=== PATIENT | female | born 1980 | race Caucasian/White ===

== ENCOUNTER 2020-11-06 10:22 | Emergency (ER) | payer OTHER, MEDICAID ==
[~2020-11-06] VITALS: Ht 157.5 cm; Wt 91.0 kg
[2020-11-06 14:59] LABS: BASOPHILS % 0.6 % (0.0-2.0); EOSINOPHILS % 3.4 % (0.0-5.0); HEMATOCRIT. 42.4 % (36.0-48.0); HEMOGLOBIN. 14.5 g/dL (12.0-16.0); LYMPHOCYTES % 24.6 % (20.0-50.0); MEAN CORPUSCULAR HEMOGLOBIN 28.9 pg (28.0-32.0); MEAN CORPUSCULAR VOLUME 84.4 fL (81.0-99.0); MEAN PLATELET VOLUME 11.5 fl (7.4-10.4); MONOCYTES % 7.7 % (2.0-8.0); NEUTROPHILS % 63.7 % (40.0-76.0); PLATELET 203 x1000/uL (130-400); RED BLOOD CELL COUNT 5.03 mill/uL (4.2-5.4); RED CELL DISTRIBUTION WIDTH 13.4 % (11.6-14.6)
[2020-11-06 15:07] LABS: CHLORIDE 110 mEq/L (98-107)
[2020-11-06 15:17] LABS: B-HCG QUANTITATIVE < 1 mIU/mL (<3)
[2020-11-06 15:21] LABS: CLARITY URINE CLEAR (CLEAR); COLOR URINE YELLOW (YELLOW); KETONES URINE NEGATIVE (NEGATIVE); LEUKOCYTE ESTERASE URINE NEGATIVE (NEGATIVE); NITRITE URINE NEGATIVE (NEGATIVE); OCCULT BLOOD URINE 1+ (NEGATIVE); PH URINE 5.5 (4.5-8.0); PROTEIN URINE NEGATIVE (NEGATIVE); SPECIFIC GRAVITY URINE 1.026 (1.005-1.030)
[2020-11-06 15:44] LABS: *AMPHETAMINES SCREEN URINE NEGATIVE (NEGATIVE); *BARBITURATES SCREEN URINE NEGATIVE (NEGATIVE); *BENZODIAZEPINES SCREEN URINE NEGATIVE (NEGATIVE); *COCAINE SCREEN URINE NEGATIVE (NEGATIVE); METHADONE URINE SCREEN NEGATIVE (NEGATIVE); OPIATES URINE SCREEN NEGATIVE (NEGATIVE)
[2020-11-06 15:45] LABS: CANNABINOID URINE SCREEN NEGATIVE (NEGATIVE); PHENCYCLIDINE URINE SCREEN NEGATIVE (NEGATIVE)
[2020-11-06] MEDS ORDERED: IBUPROFEN 600MG TABLET PO ONE (16:00)
[2020-11-06 16:01] VITALS: BP 133/72
== END 2020-11-06 16:22 | disposition home or self-care (01) ==
LOC: ER 10:22
DX: N39.0 Urinary tract infection, site not specified (principal); R19.09 Other intra-abdominal and pelvic swelling, mass and lump
CPT/HCPCS: 36415; 76830; 76856; 80053; 80305; 81003; 84702; 85025; 93005; 99285

== ENCOUNTER 2021-07-01 17:11 | Emergency (ER) | payer MEDICAID, OTHER ==
[~2021-07-01] VITALS: Ht 162.6 cm; Wt 95.0 kg
[2021-07-01] MEDS ORDERED: ACETAMINOPHEN 325MG TABLET PO ONE (20:30)
[2021-07-01] MEDS ORDERED: BACITRACIN ZINC OINT UDPKT TOP ONE (20:30)
[2021-07-01] MEDS ORDERED: LIDOCAINE HCL/PF 1% 10 MG/ML 5ML VIAL INFIL ONE (20:30)
[2021-07-01] MEDS ORDERED: TETANUS, DIPHTHERIA, PERTUSSIS VAC/PF 0.5ML (>7YR OLD) IM ONE (20:30)
[2021-07-01 21:00] VITALS: BP 148/83
[2021-07-01] MEDS ORDERED: SULFAMETHOXAZOLE/TRIMETHOPRIM 800/160MG TABLET PO ONE (21:45)
[2021-07-01] MEDS ORDERED: SULF1TAB48 MT (21:47)
== END 2021-07-01 23:20 | disposition home or self-care (01) ==
LOC: ER 17:11
DX: L02.511 Cutaneous abscess of right hand (principal)
CPT/HCPCS: 10060; 81025; 99283; J3490; Z7610

== ENCOUNTER 2021-07-03 16:29 | Emergency (ER) | payer MEDICAID ==
[~2021-07-03] VITALS: Ht 162.6 cm; Wt 96.0 kg
[~2021-07-03 16:29] MED LIST: SULF1TAB48 MT
[2021-07-03 16:54] VITALS: BP 105/64
== END 2021-07-03 17:00 | disposition home or self-care (01) ==
LOC: ER 16:29
DX: S61.214D Laceration without foreign body of right ring finger without damage to nail, subsequent encounter (principal); X58.XXXD Exposure to other specified factors, subsequent encounter
CPT/HCPCS: 99281

== ENCOUNTER 2022-02-01 09:29 | Emergency (ER) | payer MEDICAID, OTHER ==
[~2022-02-01] VITALS: Ht 157.5 cm; Wt 95.0 kg
[2022-02-01 11:30] VITALS: BP 174/80
[2022-02-01] MEDS ORDERED: KETOROLAC 30MG/ML VIAL IM ONE (11:30)
[2022-02-01] MEDS ORDERED: ACETAMINOPHEN 325MG TABLET PO ONE (11:30)
== END 2022-02-01 12:38 | disposition home or self-care (01) ==
LOC: ER 09:29
DX: S09.11XA Strain of muscle and tendon of head, initial encounter (principal); V43.52XA Car driver injured in collision with other type car in traffic accident, initial encounter; Y93.89 Activity, other specified; Y92.410 Unspecified street and highway as the place of occurrence of the external cause
CPT/HCPCS: 70450; 71045; 72070; 72100; 73630; 96372; 99284; J1885

== ENCOUNTER 2023-10-10 16:15 | Emergency (ER) | payer OTHER ==
[~2023-10-10] VITALS: Ht 167.6 cm; Wt 91.0 kg
[2023-10-10 16:23] VITALS: BP 153/87; PULSE 105; RESP 18; TEMP 98.6; O2SAT 99
[2023-10-10] MEDS ORDERED: IBUPROFEN 600MG TABLET PO ONE (17:00)
[2023-10-10] MEDS ORDERED: METH-653 MT (18:54)
== END 2023-10-10 19:29 | disposition home or self-care (01) ==
LOC: ER 16:15
DX: M25.512 Pain in left shoulder (principal); M54.2 Cervicalgia; M54.9 Dorsalgia, unspecified
CPT/HCPCS: 73030; 81025; 99283

== ENCOUNTER 2024-03-23 21:28 | Emergency (ER) | payer OTHER ==
[~2024-03-23] VITALS: Ht 157.5 cm; Wt 101.0 kg
[~2024-03-23 21:28] MED LIST changes: +METH-653 MT
[2024-03-23 21:37] VITALS: O2SAT 99
[2024-03-24] MEDS ORDERED: BENZ1LOZ73 MT (00:32)
[2024-03-24] MEDS ORDERED: IBUP-2029 MT (00:32)
[2024-03-24] MEDS: DEXAMETHASONE 10 MG/ML VIAL PO ONE (00:57)
[2024-03-24 01:01] VITALS: BP 157/97; PULSE 78; RESP 14; TEMP 98
== END 2024-03-24 01:01 | disposition home or self-care (01) ==
LOC: ER 21:28
DX: J02.9 Acute pharyngitis, unspecified (principal)
CPT/HCPCS: 99283; J1100; Z7610

== ENCOUNTER 2024-03-26 09:02 | Emergency (ER) | payer MEDICAID, OTHER ==
[~2024-03-26] VITALS: Ht 157.5 cm; Wt 99.8 kg
[~2024-03-26 09:02] MED LIST changes: +BENZ1LOZ73 MT; +IBUP-2029 MT
[2024-03-26 09:06] VITALS: O2SAT 99
[2024-03-26 09:18] VITALS: BP 160/83; PULSE 80; RESP 16; TEMP 98.4
[2024-03-26] MEDS ORDERED: AMOX-494 MT (10:53)
[2024-03-26] MEDS: DEXAMETHASONE 10 MG/ML VIAL PO ONE (11:00)
== END 2024-03-26 11:04 | disposition home or self-care (01) ==
LOC: ER 09:50
DX: J02.9 Acute pharyngitis, unspecified (principal); K04.7 Periapical abscess without sinus
CPT/HCPCS: 81025; 70360; 99283; J1100; Z7610 ×2